=== PATIENT | female | born 1980 | race Caucasian/White ===

== ENCOUNTER 2020-11-03 09:52 | Emergency (ER) | payer MEDICAID, OTHER ==
[~2020-11-03] VITALS: Ht 167.6 cm; Wt 100.0 kg
--- NOTE | 2020-11-03 10:16 | NUR ---
PT BIB SELF VIA POV. PER PT SHE HAD SINUS INFECTION TWO WEEKS AGO, WAS PUT ON ANTIBIOTICS (AUGMENTIN) FOR 8 DAYS THAT ENDED YESTERDAY. PER PT ON TUESDAY SHE HAD "MUCOUS AND BLOOD STREAKS IN MY BM". PT STATES [facility] TO [facility]ORN[facility] AND THEY DID A RECTAL EXAM AND TOLD HER TO COME TO ED. PT RESTING IN [facility], MONITORING IN PLACE, EDMD AT BEDSIDE FOR FABRICIO GONZALEZ AT THIS TIME, NEGRITO.
[2020-11-03 10:51] LABS: BASOPHILS % (AUTO) 1 % (0-1); EOSINOPHILS % (AUTO) 1 % (1-7); LYMPHOCYTES % (AUTO) 24 % (22-44); MEAN CORPUSCULAR HEMOGLOBIN 30.2 pg (27.0-34.8); MEAN CORPUSCULAR HGB CONC 34.5 g/dL (32.4-35.8); MEAN PLATELET VOLUME 7.1 fL (7.4-10.4); MONOCYTES % (AUTO) 6 % (2-9); NEUTROPHILS % (AUTO) 68 % (42-75); PLATELET COUNT 315 x10^3/uL (130-400); RED BLOOD COUNT 4.68 x10^6/uL (3.82-5.3); RED CELL DISTRIBUTION WIDTH 12.6 % (9.6-15.2)
[2020-11-03 11:01] LABS: ANION GAP 6 mmol/L (5-15); CALCIUM 8.6 mg/dL (8.5-10.1); CHLORIDE 107 mmol/L (98-107); CREATININE 0.89 mg/dL (0.55-1.02)
[2020-11-03 11:02] LABS: ALANINE AMINOTRANSFERASE 17 U/L (12-78); ALBUMIN 3.6 g/dL (3.4-5.0)
[2020-11-03 11:04] LABS: ALKALINE PHOSPHATASE 86 U/L (45-117); BILIRUBIN,TOTAL 0.4 mg/dL (0.2-1.0); TOTAL PROTEIN 7.2 g/dL (6.4-8.2)
[2020-11-03 12:41] VITALS: BP 146/92
== END 2020-11-03 13:16 | disposition home or self-care (01) ==
LOC: ED 10:56
DX: K92.2 Gastrointestinal hemorrhage, unspecified (principal); K92.1 Melena
CPT/HCPCS: 36415; 80053; 85025; 99283